=== PATIENT | female | born 1985 | race Caucasian/White ===

== ENCOUNTER 2016-08-20 04:59 | Inpatient (IN) | payer OTHER ==
--- NOTE | 2016-08-11 22:28 | HPE ---
DATE OF SCHEDULED ADMISSION: 08/20/2016 This lady is a 30-year-old, 2, para 1, last menstrual period (LMP) 11/21/2015, estimated date of confinement (EDC) 08/27/2016, for primary section 08/20/2016. Her risk factor is that she sustained a third to fourth-degree tear, repaired, because of the first baby was 9 pounds 12 ounces and it had a significant long-term effect on her recovery and requiring a prolonged interval between babies. She also had some dyspareunia post repair, which has subsequently resolved over a period of time. Also, there was an echogenic focus on ultrasound. Quad screen was ordered and was negative. She has elected to go ahead and have a primary section because of obstetrical trauma in the previous delivery. OBSTETRICAL DELIVERY: 07/29/2013 at 39 weeks, 9 pounds 12 ounces. Her blood work shows she is A+, HIV negative, hepatitis negative, rubella immune. Varicella not recorded. Pap normal. Urine negative. Gonorrhea, chlamydia negative. 1-hour glucose 65. 28-week GTT 109. GBS is negative. ON EXAMINATION: Today, she is 200 pounds, blood pressure 115/69, respirations 18, pulse is 76 and she is afebrile. She is normocephalic, atraumatic. Neck: Full range of motion. Pupils equal and reactive to light. Distal pulses are symmetric. No evidence of deep vein thrombosis (DVT) pulmonary embolism (PE), or superficial phlebitis. Chest is clear bilaterally to bases. No wheezes or rhonchi. No costovertebral angle tenderness. Four quadrant bowel sounds are noted. Appropriate symphysis fundus height. heart tones are noted. No rashes or lesions or pruritus. No arthralgia or myalgia. No complaints of cough, wheezes, shortness of breath, or dyspnea on exertion. No chest pain. She is not bleeding. Neuro complete. No incontinence, urgency, or frequency. No nausea, vomiting, diarrhea, or constipation. No diabetic issues. No gynecological (GYNAECOLOGICAL ONCOLOGIST) issues. PAST SURGICAL HISTORY: Unremarkable. She had a basal cell carcinoma removed in September 2012 and has had no recurrences. No family history. No smoking, drinking. No drug abuse. She is , and there is no domestic violence. We discussed the risks and benefits of elective primary section because of previous obstetrical trauma including the risk of hemorrhage, infection, perforation, , reoperation, remote possibility of hysterectomy, remote possibility of blood transfusion, remote possibility of fetus ending up in the intensive care unit (NICU) or laceration. After expressing understanding of the risks and benefits, both and agreed, signed and witnessed the consent form. Patient is booked for elective repeat the primary section 08/20/2016. 20 minutes in [id number] consultation.
[~2016-08-20] VITALS: Ht 167.6 cm; Wt 90.0 kg
[~2016-08-20 04:59] MED LIST: JUICLIQ5 PO; PREN200C2 PO; RANI15TA PO; TUMS500C PO; ZYRT10TA2 PO
[2016-08-20] MEDS ORDERED: LR 500 ML IV ONE (05:00)
[2016-08-20] MEDS ORDERED: BICITRA 30ML SOLN UDC PO ONE (05:00)
[2016-08-20] MEDS ORDERED: BUPIVACAINE HCL 0.25% 10 ML VIAL XX PRN (05:15)
[2016-08-20] MEDS ORDERED: ACETAMINOPHEN 650 MG SUPP PR ONE (05:15)
[2016-08-20 05:33] LABS: MEAN CORPUSCULAR HEMOGLOBIN 31.9 pg (27.0-33.0); MEAN CORPUSCULAR HGB CONC 34.7 g/dl (32.0-36.5); MEAN CORPUSCULAR VOLUME 91.9 fl (80.0-96.0); RED CELL DISTRIBUTION WIDTH 14.2 % (11.5-14.5); WHITE BLOOD COUNT 9.7 K/mm3 (4.0-10.0)
[2016-08-20] MEDS ORDERED: LR 1,000 ML IV SCH (06:00)
[2016-08-20] MEDS ORDERED: MORPHINE PRES-FREE INJ 10 MG/10 ML VIAL (J2274) As Ordered ONE (07:25)
[2016-08-20] MEDS ORDERED: ONDANSETRON 4MG/2ML VIAL (J2405) IV PRN ×2 (07:54→09:45)
[2016-08-20] MEDS ORDERED: METOCLOPRAMIDE INJ 10MG/2ML VIAL (J2765) IV PRN (07:54)
[2016-08-20] MEDS ORDERED: NALOXONE INJ 0.4 MG/1 ML VIAL (J2310) IV PRN ×2 (07:54)
[2016-08-20] MEDS ORDERED: NALBUPHINE HCL 10 MG/ML AMP (J2300) IV PRN (07:54)
[2016-08-20] MEDS ORDERED: OXYTOCIN INJ 10 UNITS/ML VIAL (J2590) As Ordered ONE ×2 (08:05→08:21)
[2016-08-20] MEDS ORDERED: OXYTOCIN DRIP 30 UNITS in APPROPRIATE DILUENT 1 EA IV SCH (08:54)
[2016-08-20] MEDS: PRENATAL VITAMIN TAB PO SCH (09:00)
[2016-08-20] MEDS ORDERED: DOCUSATE SODIUM 100 MG CAP PO PRN (09:00)
[2016-08-20] MEDS ORDERED: ANUSOL HC CREAM 30GM TOP PRN (09:00)
[2016-08-20] MEDS ORDERED: METHYLERGONOVINE MALEATE 0.2 MG TAB PO PRN (09:00)
[2016-08-20] MEDS ORDERED: MOM 30ML SUSPENSION UDC PO PRN (09:00)
[2016-08-20] MEDS ORDERED: IBUPROFEN 800 MG TAB PO SCH (09:00)
[2016-08-20] MEDS ORDERED: PERCOCET 5MG/325MG TAB PO PRN (09:00)
[2016-08-20] MEDS ORDERED: MEASLES,MUMPS,RUBELLA VACCINE INJ (MMR-II) (90707) SC SCH (09:00)
[2016-08-20] MEDS ORDERED: RHOGAM 300 MCG (1500 IU) INJ (J2790) IM SCH (09:00)
[2016-08-20] MEDS ORDERED: OXYTOCIN INJ 10 UNITS/ML VIAL (J2590) IV ONE (09:00)
[2016-08-20 09:05] LABS: CORD GAS ABE V -3.9; CORD GAS HCO3 V 21.5 MEQ/L; CORD GAS O2 SAT V 71.4 %; CORD GAS PCO2 V 40.2 mmHg; CORD GAS PH V 7.346 UNITS; CORD GAS PO2 V 31.9 mmHg; CORD GAS SBC V 20.7 MEQ/L; CORD GAS TCO2 V 22.7 MEQ/L
[2016-08-20 09:06] LABS: CORD GAS ABE A -2.3; CORD GAS HCO3 A 24.6 MEQ/L; CORD GAS O2 SAT A 46.2 %; CORD GAS PCO2 A 50.7 mmHg; CORD GAS PH A 7.304 UNITS; CORD GAS PO2 A 21.9 mmHg; CORD GAS SBC A 21.4 MEQ/L; CORD GAS TCO2 A 26.2 MEQ/L
[2016-08-20] MEDS ORDERED: ONDANSETRON 4MG/2ML VIAL (J2405) As Ordered ONE (09:14)
[2016-08-20] MEDS ORDERED: fentaNYL 100 MCG/2 ML INJECTION (J3010) IV PRN (09:45)
[2016-08-20 11:50] VITALS: BP 108/56
[2016-08-20 12:20] VITALS: BP 101/54
[2016-08-20 13:20] VITALS: BP 102/53
[2016-08-20 14:20] VITALS: BP 102/51
[2016-08-20 18:17] VITALS: BP 105/57
[2016-08-20] MEDS: IBUPROFEN 800 MG TAB PO SCH ×2 (20:00→20:36)
[2016-08-20 22:26] VITALS: BP 115/63
[2016-08-20] MEDS: PERCOCET 5MG/325MG TAB PO PRN (23:14)
--- NOTE | 2016-08-20 23:40 | RO ---
DATE OF PROCEDURE: 08/20/2016 PREOPERATIVE DIAGNOSIS: Previous obstetrical trauma. POSTOPERATIVE DIAGNOSIS: Previous obstetrical trauma. OPERATION PROPOSED: Primary section. OPERATION PERFORMED: Primary section. SURGEON: Dr. Michael Obregon POWER SHEAR OPERATOR: David ANESTHESIA: Spinal plus local anesthetic for intraperitoneal procedures. ESTIMATED BLOOD LOSS: Less than 400 mL. DESCRIPTION OF PROCEDURE: Under adequate anesthesia, prepped and draped in the supine position, Coleman catheter in the bladder draining clear urine, acetaminophen suppository 1300 mg per rectum, sequentials on board, antibiotics appropriately preop. With time-out performed, a Pfannenstiel incision was made two fingerbreadths above symphysis pubis passing through abdominal layers securing hemostasis. Opening peritoneal cavity, bladder reflected well down anteriorly, low transverse incision was made into the uterus. ARM was draining a moderate amount of liqua, almost to the point of polyhydramnios. We delivered a live female infant weighing 4162 grams, scores of 9 and 9 at one and five minutes respectively, 9 pounds 3 ounces. Arterial blood gas 7.30, base excess -2.3, venous pH 7.34, base excess -3.9. Placenta was manually removed. Three-vessels in the cord. Membranes and tissues intact. The uterus was swept clean. Uterus contracted well down on Pitocin. The lower segment was oversewn in the usual fashion in two layers and reperitonealization was performed. With instrument and pad count correct, the gutters were examined. Ovaries and tubes appeared to be normal. One final look at the incisional site which was dry. We then closed the abdomen, running stitch for the peritoneum, same for the fascia, interrupted for subcu, Dexon to the skin, Marcaine 0.25% 10 mL and Telfa and the patient was sent to recovery in good condition. Carbon Copy: Padilla [facility]
[2016-08-21 02:10] VITALS: BP 109/53
[2016-08-21 06:10] VITALS: BP 106/56
[2016-08-21 07:15] LABS: MEAN CORPUSCULAR HEMOGLOBIN 32.7 pg (27.0-33.0); MEAN CORPUSCULAR HGB CONC 34.4 g/dl (32.0-36.5); MEAN CORPUSCULAR VOLUME 95.1 fl (80.0-96.0); RED CELL DISTRIBUTION WIDTH 13.7 % (11.5-14.5); WHITE BLOOD COUNT 8.3 K/mm3 (4.0-10.0)
--- NOTE | 2016-08-21 07:44 | IPN ---
DATE: 08/21/2016 This lady had a primary section because of previous obstetrical trauma. Delivered a female infant 9 pounds 3 ounces, 4162 grams. 9 and 9 one to five minutes respectively. Arterial pH 7.30, base excess -2.3, venous pH 7.34, base excess -3.9. On examination today, breast feedings going well. Chest is clear bilaterally to bases. Heart sounds are normal. No evidence of DVT, PE or superficial phlebitis. Chest is clear bilaterally at the bases. Abdomen is soft. Uterus two below. Lochia is moderate. Incision is clean and dry. Vaginal lochia is normal to moderate. The patient is planning on discharge tomorrow. We discussed phlebitis, cystitis, mastitis, endometritis and cellulitis, diet, exercise, pain management, perineal, breast and wound care. Blood pressure 106/56, respirations are 18, pulse is 71, temperature 96.6. Her admitting hemoglobin 11.3, hematocrit 32.5, platelets 187. day 1 hemoglobin 9.2, hematocrit 26.8 and platelets are 127. In summary, we have a term gestation delivered by primary section because of obstetrical trauma, live female infant to be discharged tomorrow.
[2016-08-21] MEDS: PRENATAL VITAMIN TAB PO SCH (07:59)
[2016-08-21] MEDS: IBUPROFEN 800 MG TAB PO SCH ×3 (08:00→19:42)
[2016-08-21 10:00] VITALS: BP 104/51
[2016-08-21 14:00] VITALS: BP 110/57
[2016-08-21 18:00] VITALS: BP 126/62
[2016-08-21 22:00] VITALS: BP 116/59
[2016-08-21] MEDS: PERCOCET 5MG/325MG TAB PO PRN (22:42)
[2016-08-22] MEDS: IBUPROFEN 800 MG TAB PO SCH (04:54)
[2016-08-22 05:41] VITALS: BP 117/62
[2016-08-22] MEDS: PRENATAL VITAMIN TAB PO SCH (08:53)
--- NOTE | 2016-08-22 09:41 | IPNPDOC ---
Text Note Date of Service The patient was seen on 08/22/16 at 09:34. NOTE Post-operative Day 2 Ernestina is a 30yo [id number] s/p scheduled RLTCS at 39wk indicated for hx of prior obstetric trauma, doing well on POD 2. Tolerating regular diet, pain well controlled, urinating spontaneously without difficulty, ambulating with ease. well. Lochia normal. Denies f/c/n/v/SOB/CP. Vitals wnl, afebrile General: WDWN, resting comfortably Cardiac: S1S2 present, no murmur Lungs: CTAB Abdomen: soft, appropriately tender to palpation with no rebound/guarding, uterine fundus at u-2cm, steri strips present, incision is clean/dry/intact with no erythema or drainage Extremities: no pain with palpation of BLE Pre-op H/H 11.3/32.5, post-op 9.2/26.8 Surgical EBL 400ml Assessment: Ernestina is a 30yo [id number] s/p scheduled RLTCS at 39wk indicated for hx of prior obstetric trauma, doing well on POD 2. Vitals wnl, afebrile, exam benign. Hemodynamically stable with no e/o infection. Meeting all milestones. Plan: -discharge to home today -percocet and motrin for pain -regular diet -encourage and ambulation -post-op follow up in 1-2wk with Dr. Sabas Darby MD [place] VSS[place], I+O Vital Signs Date Time Temp Pulse Resp B/P Pulse Ox O2 Delivery O2 Flow Rate FiO2 08/22/16 05:41 97.2 77 18 117/62 08/21/16 22:00 100 Room Air JOSE DARBY MD Aug 22, 2016 09:41
--- NOTE | 2016-08-22 09:49 | DS.PDOC ---
Discharge Summary General Date of Admission Aug 20, 2016 at 04:59 Date of Discharge Aug 22, 2016 Attending Physician: JOSE DARBY MD Discharge Summary PROCEDURES PERFORMED DURING STAY: Primary low transverse section COMPLICATIONS/CHIEF COMPLAINT: Previous Obstetrical Trauma ADMISSION DIAGNOSES: 1. Term intrauterine at 39wk with hx of previous obstetrical trauma desiring primary DISCHARGE DIAGNOSES: 1. Same as admission diagnoses, delivered HISTORY OF PRESENT ILLNESS/HOSPITAL COURSE: Ernestina is a 30yo [id number] who underwent scheduled RLTCS at 39wk on 08/20/16 indicated for hx of prior obstetric trauma, with no complications experienced. Delivery productive of viable female infant. She had a benign post-operative/ post- course. Pre-op H/H 11.3/32.5, post-op 9.2/26.8. Surgical EBL 400ml. DISCHARGE MEDICATIONS: percocet, motrin, colace, dibucaine topical anesthetic ALLERGIES: Please see below. PHYSICAL EXAMINATION ON DISCHARGE: Vitals wnl, afebrile General: WDWN, resting comfortably Cardiac: S1S2 present, no murmur Lungs: CTAB Abdomen: soft, appropriately tender to palpation with no rebound/guarding, uterine fundus at u-2cm, steri strips present, incision is clean/dry/intact with no erythema or drainage Extremities: no pain with palpation of BLE LABORATORY DATA: Please see below. IMAGING: none VTE Prophylaxis ordered?: none needed DISCHARGE CONDITION: stable DISPOSITION: discharge to home ACTIVITY: ad castro, vaginal rest for 6 weeks DIET: regular DISCHARGE PLAN AND INSTRUCTIONS: 1. Follow up with Dr. Obregon in 1-2 weeks for incision check 2. Motrin and percocet for pain as well as dibucaine topical gel TIME SPENT ON DISCHARGE: Greater than 30 minutes. Vital Signs/I&Os Vital Signs Date Time Temp Pulse Resp B/P Pulse Ox O2 Delivery O2 Flow Rate FiO2 08/22/16 05:41 97.2 77 18 117/62 08/21/16 22:00 100 Room Air Medications Scheduled (Juice Plus Fibre) 1 Liq Liq 1 LIQ PO DAILY Cetirizine HCl (Zyrtec Allergy) 10 Mg Tab 10 MG PO DAILY Multivitamins/ ( Dha) 200 Mg Cap 200 MG PO DAILY Scheduled PRN Calcium Carbonate (Tums) 500 Mg Chw 500 MG PO PRN PRN PRN INDIGESTION Ranitidine Hcl (Zantac) 150 Mg Tab 1 TAB PO PRN PRN PRN INDIGESTION Allergies Coded Allergies: Latex (Verified Allergy, Unknown, RASH, 08/13/16) JOSE DARBY MD Aug 22, 2016 09:49
[2016-08-22] MEDS ORDERED: MOTR200T44 PO (10:54)
[2016-08-22] MEDS ORDERED: COLA100C PO (10:54)
[2016-08-22] MEDS ORDERED: PERCOCET PO (10:54)
== END 2016-08-22 12:10 | disposition home or self-care (01) | DRG 766 ==
LOC: M LDI 04:59 → M OBS 12:06
PROVIDERS: ADMIT Obstetrics & Gynecology; ATTEND Obstetrics & Gynecology
PROC: 10D00Z1 Extraction of Products of Conception, Low, Open Approach (ICD-10-PCS; principal; 2016-08-20 07:30)
DX: O99.89 Other specified diseases and conditions complicating pregnancy, childbirth and the puerperium (principal); Z3A.39 39 weeks gestation of pregnancy; Z87.59 Personal history of other complications of pregnancy, childbirth and the puerperium; Z85.828 Personal history of other malignant neoplasm of skin; Z37.0 Single live birth